=== PATIENT | female | born 2000 | race American Indian/Alaskan Native ===

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

== ENCOUNTER 2018-06-16 02:26 | Emergency (ER) | payer SELFPAY ==
[2018-06-16] MEDS ORDERED: TYLENOL ONE (03:08)
[2018-06-16] MEDS ORDERED: TYLENOL PO ONE (03:31)
[2018-06-16 05:15] LABS: Bacteria,Urine 4+ /HPF (Negative); Bilirubin,Urine NEG (Negative); Blood,Urine SM (Negative); Color,Urine Amber (Yellow); HCG Qualitative,Urine Negative (Negative); Mucus,Urine 2+ /HPF
[2018-06-16 08:11] VITALS: BP 100/64
[2018-06-16] MEDS ORDERED: ROCEPHIN IM ONE (09:08)
[2018-06-16] MEDS ORDERED: XYLOCAINE 1% MPF 5 mL INFILTRATI ONE (09:08)
--- NOTE | 2018-06-16 09:13 | Emergency Department Report ---
ED Female HPI - General Chief complaint: Back Pain/Injury Stated complaint: POSS KIDNEY INFECTION FEVER DIZZY NAUSEA Time Seen by Provider: 06/16/18 09:03 Source: patient Mode of arrival: Ambulatory Limitations: No Limitations - History of Present Illness Initial comments: Patient is 17 years old female with no significant past medical history except for UTI. Patient presented to the ER complaining of fever, dysuria and cloudy urine. Patient is also complaining of right flank pain. Patient stated that her symptoms been going on for 3 days. Patient stated this is similar to her symptoms when she had UTI. Patient stated that she is nauseated but no vomiting. MD Complaint: dysuria, pelvic pain - Related Data Home Medications Medication Instructions Recorded Confirmed Last Taken Montelukast [Singulair] 25 mg PO QDAY 07/02/16 12/28/17 07/02/16 10:00 Previous Rx's Medication Instructions Recorded Last Taken Type Docusate Sodium [Colace] 100 mg PO BID PRN #60 capsule 07/02/16 Unknown Rx Ferrous Sulfate [Feosol 325 MG tab] 325 mg PO BID #60 tablet 07/02/16 1 Day Ago Rx ~10/29/17 Ibuprofen [Motrin 600 MG tab] 600 mg PO Q6HR PRN #30 tablet 07/02/16 Unknown Rx ALBUTEROL Inhaler (OR & NICU) 2 puff IH QID PRN #1 inhalation 08/03/17 1 Week Ago Rx [ProAir HFA Inhaler] ~10/23/17 2 PUFFS predniSONE [Deltasone] 40 mg PO QDAY #5 tab 08/03/17 Unknown Rx Nitrofurantoin Monohyd/M-Cryst 100 mg PO QDAY #60 capsule 11/02/17 Unknown Rx [Macrobid 100 mg Capsule] Promethazine [Phenergan TAB] 25 mg PO Q6HR PRN #30 tab 11/02/17 1 Month Ago Rx ~11/30/17 cephALEXin [Keflex] 500 mg PO Q12HR #20 cap 11/02/17 1 Month Ago Rx ~11/30/17 oxyCODONE /ACETAMINOPHEN [Percocet 1 tab PO Q6HR PRN #30 tablet 11/02/17 Unknown Rx 5/325] ALBUTEROL Inhaler (OR & NICU) 2 puff IH QID PRN #1 device 11/25/17 Unknown Rx [ProAir HFA Inhaler] Prednisone [predniSONE 10 mg 10 mg PO .TAPER #1 tab.ds.pk 11/25/17 Unknown Rx (6-Day Pack, 21 Tabs)] Ferrous Sulfate [Feosol 325 MG tab] 325 mg PO BID #60 tablet 12/29/17 Unknown Rx HYDROcodone/APAP 5-325 [[place] 1 each PO Q6HR PRN #20 tablet 12/29/17 Unknown Rx 5/325] Ibuprofen [Motrin] 800 mg PO Q8HR PRN #30 tablet 12/29/17 Unknown Rx Allergies Allergy/AdvReac Type Severity Reaction Status Date / Time No Known Allergies Allergy Unverified 06/05/16 10:36 ED Review of Systems ROS: Stated complaint: POSS KIDNEY INFECTION FEVER DIZZY NAUSEA Other details as noted in HPI Comment: All other systems reviewed and negative Constitutional: chills, fever Cardiovascular: denies: chest pain, palpitations Gastrointestinal: nausea. denies: abdominal pain, vomiting, diarrhea, constipation, hematemesis, hematochezia Genitourinary: urgency, dysuria, frequency. denies: hematuria, discharge Musculoskeletal: back pain ED Past Medical Hx - Past Medical History Previous Medical History?: Yes Hx Hypertension: No Hx Congestive Heart Failure: No Hx Diabetes: No Hx Deep Vein Thrombosis: No Hx Renal Disease: No Hx Sickle Cell Disease: No Hx Seizures: No Hx Asthma: Yes Hx COPD: No Hx HIV: No Additional medical history: 26 weeks now - Surgical History Past Surgical History?: No - Social History Smoking Status: Never Smoker Substance Use Type: None - Medications Home Medications: Home Medications Medication Instructions Recorded Confirmed Last Taken Type Docusate Sodium [Colace] 100 mg PO BID PRN #60 capsule 07/02/16 12/28/17 Unknown Rx Ferrous Sulfate [Feosol 325 MG tab] 325 mg PO BID #60 tablet 07/02/16 12/28/17 1 Day Ago Rx ~10/29/17 Ibuprofen [Motrin 600 MG tab] 600 mg PO Q6HR PRN #30 tablet 07/02/16 12/28/17 Unknown Rx Montelukast [Singulair] 25 mg PO QDAY 07/02/16 12/28/17 07/02/16 10:00 History ALBUTEROL Inhaler (OR & NICU) 2 puff IH QID PRN #1 inhalation 08/03/17 12/28/17 1 Week Ago Rx [ProAir HFA Inhaler] ~10/23/17 2 PUFFS predniSONE [Deltasone] 40 mg PO QDAY #5 tab 08/03/17 12/28/17 Unknown Rx Nitrofurantoin Monohyd/M-Cryst 100 mg PO QDAY #60 capsule 11/02/17 12/28/17 Unknown Rx [Macrobid 100 mg Capsule] Promethazine [Phenergan TAB] 25 mg PO Q6HR PRN #30 tab 11/02/17 12/28/17 1 Month Ago Rx ~11/30/17 cephALEXin [Keflex] 500 mg PO Q12HR #20 cap 11/02/17 12/28/17 1 Month Ago Rx ~11/30/17 oxyCODONE /ACETAMINOPHEN [Percocet 1 tab PO Q6HR PRN #30 tablet 11/02/17 Unknown Rx 5/325] ALBUTEROL Inhaler (OR & NICU) 2 puff IH QID PRN #1 device 11/25/17 12/28/17 Unknown Rx [ProAir HFA Inhaler] Prednisone [predniSONE 10 mg 10 mg PO .TAPER #1 tab.ds.pk 11/25/17 12/28/17 Unknown Rx (6-Day Pack, 21 Tabs)] Ferrous Sulfate [Feosol 325 MG tab] 325 mg PO BID #60 tablet 12/29/17 Unknown Rx HYDROcodone/APAP 5-325 [[place] 1 each PO Q6HR PRN #20 tablet 12/29/17 Unknown Rx 5/325] Ibuprofen [Motrin] 800 mg PO Q8HR PRN #30 tablet 12/29/17 Unknown Rx ED Physical Exam - General Limitations: No Limitations General appearance: alert, in no apparent distress - Head Head exam: Present: atraumatic, normocephalic, normal inspection - Eye Eye exam: Present: normal appearance - ENT ENT exam: Present: normal exam, normal orophraynx, mucous membranes moist - Neck Neck exam: Present: normal inspection, full ROM. Absent: tenderness, meningismus, lymphadenopathy, thyromegaly - Respiratory Respiratory exam: Present: normal lung sounds bilaterally. Absent: respiratory distress, wheezes, rales, rhonchi, stridor, chest wall tenderness, accessory muscle use, decreased breath sounds, prolonged expiratory - Cardiovascular Cardiovascular Exam: Present: regular rate, normal rhythm, normal heart sounds - GI/Abdominal GI/Abdominal exam: Present: soft, normal bowel sounds. Absent: distended, tenderness, guarding, rebound, rigid, organomegaly, mass, bruit, pulsatile mass , hernia - Extremities Exam Extremities exam: Present: normal inspection, full ROM, normal capillary refill. Absent: pedal edema, calf tenderness - Back Exam Back exam: Present: normal inspection, full ROM, CVA tenderness (R). Absent: tenderness, CVA tenderness (L), muscle spasm, paraspinal tenderness, vertebral tenderness - Neurological Exam Neurological exam: Present: alert, oriented X3, CN II-XII intact, normal gait, reflexes normal - Skin Skin exam: Present: warm, intact, normal color ED Course Vital Signs 06/16/18 06/16/18 03:24 08:07 Temperature 103.1 F H 99.0 F Pulse Rate 118 H 105 H Respiratory 20 16 Rate Blood Pressure 118/75 100/64 O2 Sat by Pulse 97 100 Oximetry Critical care attestation.: If time is entered above; I have spent that time in minutes in the direct care of this critically ill patient, excluding procedure time. ED Disposition Clinical Impression: UTI (urinary tract infection), Fever Disposition: - TO HOME OR SELFCARE Is pt being admited?: No Condition: Stable Instructions: Urinary Tract Infection in Women (ED), Acute Pyelonephritis (ED) Referrals: PRIMARY CARE, [Primary Care Provider] - 3-5 Days
[2018-06-16] MEDS ORDERED: XYLOCAINE 1% 20 mL ONE (09:25)
== END 2018-06-16 09:36 | disposition home or self-care (01) ==
LOC: ED 02:26
DX: N39.0 Urinary tract infection, site not specified (principal); J45.909 Unspecified asthma, uncomplicated
CPT/HCPCS: 81001; 81025; 96372; 99283; J0696

== ENCOUNTER 2018-11-08 13:45 | Emergency (ER) | payer SELFPAY ==
[2018-11-08 14:35] VITALS: BP 132/91
[2018-11-08] MEDS ORDERED: DUONEB *Not for PRN Use IH ONE (14:37)
[2018-11-08] MEDS ORDERED: SOLU-Medrol IM ONE (14:37)
--- NOTE | 2018-11-08 14:37 | Emergency Department Report ---
Blank Doc - Documentation Documentation: cc of asthma exacerbation started today LMP; not prod cough x today EXAM: wheezing Bilat PLAN: cxr, solumedrol duoneb breathing tx Reevaluate fastrack
[2018-11-08] MEDS ORDERED: CLARITIN PO ONE (14:38)
[2018-11-08] MEDS ORDERED: ROBITUSSIN PO ONE (14:39)
--- NOTE | 2018-11-08 15:56 | Emergency Department Report ---
ED General Adult HPI - General Chief complaint: Adult Asthma Stated complaint: ASTHMA Time Seen by Provider: 11/08/18 15:39 Source: patient Mode of arrival: Ambulatory Limitations: No Limitations - History of Present Illness Initial comments: Patient presents to the emergency department with chief complaint of asthma attack. Patient states that the change in weather usually flares up her asthma. Patient has been using her rescue inhaler home but is out of her Singulair. -: Sudden Severity scale (0 -10): 2 Quality: burning Improves with: none Worsens with: none Associated Symptoms: denies other symptoms Treatments Prior to Arrival: none - Related Data Home Medications Medication Instructions Recorded Confirmed Last Taken Montelukast [Singulair] 25 mg PO QDAY 07/02/16 12/28/17 07/02/16 10:00 Previous Rx's Medication Instructions Recorded Last Taken Type Docusate Sodium [Colace] 100 mg PO BID PRN #60 capsule 07/02/16 Unknown Rx Ferrous Sulfate [Feosol 325 MG tab] 325 mg PO BID #60 tablet 07/02/16 1 Day Ago Rx ~10/29/17 Ibuprofen [Motrin 600 MG tab] 600 mg PO Q6HR PRN #30 tablet 07/02/16 Unknown Rx ALBUTEROL Inhaler (OR & NICU) 2 puff IH QID PRN #1 inhalation 08/03/17 1 Week Ago Rx [ProAir HFA Inhaler] ~10/23/17 2 PUFFS predniSONE [Deltasone] 40 mg PO QDAY #5 tab 08/03/17 Unknown Rx Nitrofurantoin Monohyd/M-Cryst 100 mg PO QDAY #60 capsule 11/02/17 Unknown Rx [Macrobid 100 mg Capsule] Promethazine [Phenergan TAB] 25 mg PO Q6HR PRN #30 tab 11/02/17 1 Month Ago Rx ~11/30/17 cephALEXin [Keflex] 500 mg PO Q12HR #20 cap 11/02/17 1 Month Ago Rx ~11/30/17 oxyCODONE /ACETAMINOPHEN [Percocet 1 tab PO Q6HR PRN #30 tablet 11/02/17 Unknown Rx 5/325] ALBUTEROL Inhaler (OR & NICU) 2 puff IH QID PRN #1 device 11/25/17 Unknown Rx [ProAir HFA Inhaler] Prednisone [predniSONE 10 mg 10 mg PO .TAPER #1 tab.ds.pk 11/25/17 Unknown Rx (6-Day Pack, 21 Tabs)] Ferrous Sulfate [Feosol 325 MG tab] 325 mg PO BID #60 tablet 12/29/17 Unknown Rx HYDROcodone/APAP 5-325 [[place] 1 each PO Q6HR PRN #20 tablet 12/29/17 Unknown Rx 5/325] Ibuprofen [Motrin] 800 mg PO Q8HR PRN #30 tablet 12/29/17 Unknown Rx Ciprofloxacin HCl [Ciprofloxacin 500 mg PO Q12H #14 tab 06/16/18 Unknown Rx TAB] Ondansetron [Zofran Odt] 4 mg PO Q8HR PRN #14 tab.rapdis 06/16/18 Unknown Rx ALBUTEROL Inhaler (OR & NICU) 2 puff IH Q4HR PRN #1 inhalation 11/08/18 Unknown Rx [ProAir HFA Inhaler] Montelukast [Singulair] 10 mg PO QPM #30 tablet 11/08/18 Unknown Rx predniSONE [Deltasone] 20 mg PO DAILY #15 tablet 11/08/18 Unknown Rx Allergies Allergy/AdvReac Type Severity Reaction Status Date / Time No Known Allergies Allergy Verified 11/08/18 14:33 ED Review of Systems ROS: Stated complaint: ASTHMA Other details as noted in HPI Comment: All other systems reviewed and negative Constitutional: denies: chills, fever Eyes: denies: eye pain, eye discharge, vision change ENT: denies: ear pain, throat pain Respiratory: shortness of breath. denies: cough, wheezing Cardiovascular: denies: chest pain, palpitations Endocrine: no symptoms reported Gastrointestinal: denies: abdominal pain, nausea, diarrhea Genitourinary: denies: urgency, dysuria, discharge Musculoskeletal: denies: back pain, joint swelling, arthralgia Skin: denies: rash, lesions Neurological: denies: headache, weakness, paresthesias Psychiatric: denies: anxiety, depression Hematological/Lymphatic: denies: easy bleeding, easy bruising ED Past Medical Hx - Past Medical History Previous Medical History?: Yes Hx Hypertension: No Hx Congestive Heart Failure: No Hx Diabetes: No Hx Deep Vein Thrombosis: No Hx Renal Disease: No Hx Sickle Cell Disease: No Hx Seizures: No Hx Asthma: Yes Hx COPD: No Hx HIV: No Additional medical history: 26 weeks now - Surgical History Past Surgical History?: No - Social History Smoking Status: Never Smoker Substance Use Type: None - Medications Home Medications: Home Medications Medication Instructions Recorded Confirmed Last Taken Type Docusate Sodium [Colace] 100 mg PO BID PRN #60 capsule 07/02/16 12/28/17 Unknown Rx Ferrous Sulfate [Feosol 325 MG tab] 325 mg PO BID #60 tablet 07/02/16 12/28/17 1 Day Ago Rx ~10/29/17 Ibuprofen [Motrin 600 MG tab] 600 mg PO Q6HR PRN #30 tablet 07/02/16 12/28/17 Unknown Rx Montelukast [Singulair] 25 mg PO QDAY 07/02/16 12/28/17 07/02/16 10:00 History ALBUTEROL Inhaler (OR & NICU) 2 puff IH QID PRN #1 inhalation 08/03/17 12/28/17 1 Week Ago Rx [ProAir HFA Inhaler] ~10/23/17 2 PUFFS predniSONE [Deltasone] 40 mg PO QDAY #5 tab 08/03/17 12/28/17 Unknown Rx Nitrofurantoin Monohyd/M-Cryst 100 mg PO QDAY #60 capsule 11/02/17 12/28/17 Unknown Rx [Macrobid 100 mg Capsule] Promethazine [Phenergan TAB] 25 mg PO Q6HR PRN #30 tab 11/02/17 12/28/17 1 Month Ago Rx ~11/30/17 cephALEXin [Keflex] 500 mg PO Q12HR #20 cap 11/02/17 12/28/17 1 Month Ago Rx ~11/30/17 oxyCODONE /ACETAMINOPHEN [Percocet 1 tab PO Q6HR PRN #30 tablet 11/02/17 12/28/17 Unknown Rx 5/325] ALBUTEROL Inhaler (OR & NICU) 2 puff IH QID PRN #1 device 11/25/17 12/28/17 Unknown Rx [ProAir HFA Inhaler] Prednisone [predniSONE 10 mg 10 mg PO .TAPER #1 tab.ds.pk 11/25/17 12/28/17 Unknown Rx (6-Day Pack, 21 Tabs)] Ferrous Sulfate [Feosol 325 MG tab] 325 mg PO BID #60 tablet 12/29/17 Unknown Rx HYDROcodone/APAP 5-325 [[place] 1 each PO Q6HR PRN #20 tablet 12/29/17 Unknown Rx 5/325] Ibuprofen [Motrin] 800 mg PO Q8HR PRN #30 tablet 12/29/17 Unknown Rx Ciprofloxacin HCl [Ciprofloxacin 500 mg PO Q12H #14 tab 06/16/18 Unknown Rx TAB] Ondansetron [Zofran Odt] 4 mg PO Q8HR PRN #14 tab.rapdis 06/16/18 Unknown Rx ALBUTEROL Inhaler (OR & NICU) 2 puff IH Q4HR PRN #1 inhalation 11/08/18 Unknown Rx [ProAir HFA Inhaler] Montelukast [Singulair] 10 mg PO QPM #30 tablet 11/08/18 Unknown Rx predniSONE [Deltasone] 20 mg PO DAILY #15 tablet 11/08/18 Unknown Rx ED Physical Exam - General Limitations: No Limitations General appearance: alert, in no apparent distress - Head Head exam: Present: atraumatic, normocephalic - Eye Eye exam: Present: normal appearance, PERRL, EOMI - ENT ENT exam: Present: mucous membranes moist - Neck Neck exam: Present: normal inspection - Respiratory Respiratory exam: Present: normal lung sounds bilaterally, wheezes. Absent: respiratory distress - Cardiovascular Cardiovascular Exam: Present: regular rate, normal rhythm. Absent: systolic murmur, diastolic murmur, rubs, gallop - GI/Abdominal GI/Abdominal exam: Present: soft, normal bowel sounds. Absent: distended, tenderness - Extremities Exam Extremities exam: Present: normal inspection - Back Exam Back exam: Present: normal inspection - Neurological Exam Neurological exam: Present: alert, oriented X3, CN II-XII intact. Absent: motor sensory deficit - Psychiatric Psychiatric exam: Present: normal affect, normal mood - Skin Skin exam: Present: warm, dry, intact, normal color. Absent: rash ED Course Vital Signs 11/08/18 11/08/18 14:33 15:08 Temperature 98.6 F Pulse Rate 93 H Pulse Rate [ 85 Bilateral] Respiratory 22 Rate Respiratory 20 Rate [Bilateral ] Blood Pressure 132/91 O2 Sat by Pulse 91 Oximetry ED Medical Decision Making - Medical Decision Making Patient improved with the breathing treatment and steroids Critical care attestation.: If time is entered above; I have spent that time in minutes in the direct care of this critically ill patient, excluding procedure time. ED Disposition Clinical Impression: Asthma Disposition: [id number]-01 TO HOME OR SELFCARE Is pt being admited?: No Does the pt Need Aspirin: No Condition: Stable Instructions: Asthma (ED) Additional Instructions: return if worse Prescriptions: Montelukast [Singulair] 10 mg PO QPM #30 tablet Referrals: [facility] [Provider Group] - 3-5 Days [facility] [Provider Group] - 3-5 Days SARAI RAYO MD [Primary Care Provider] - 3-5 Days Time of Disposition: 16:16
== END 2018-11-08 16:36 | disposition home or self-care (01) ==
LOC: ED 13:45
DX: O26.892 Other specified pregnancy related conditions, second trimester (principal); O99.512 Diseases of the respiratory system complicating pregnancy, second trimester; Z3A.26 26 weeks gestation of pregnancy; Z79.899 Other long term (current) drug therapy
CPT/HCPCS: 94640; 96372; 99282; J2930

== ENCOUNTER 2018-12-13 15:48 | Emergency (ER) | payer OTHER ==
[2018-12-13 16:21] VITALS: BP 120/92
[2018-12-13] MEDS ORDERED: BICILLIN L-A IM STA (16:32)
[2018-12-13] MEDS ORDERED: DECADRON PO ONE (16:35)
--- NOTE | 2018-12-13 16:41 | Emergency Department Report ---
ED ENT HPI - General Chief complaint: Sore Throat Stated complaint: DIFFICULTY SWOLLOWING Time Seen by Provider: 12/13/18 16:31 Source: patient Mode of arrival: Ambulatory Limitations: No Limitations - History of Present Illness MD complaint: sore throat, difficulty swallowing -: Sudden, days(s) (2) Location: throat Severity: moderate Quality: constant Improves with: none Worsens with: none Associated Symptoms: sore throat. denies: cough, gum swelling, toothache, pain with swallowing, tinnitus, hearing loss, discharge from ear, rhinorrhea - Related Data Home Medications Medication Instructions Recorded Confirmed Last Taken Montelukast [Singulair] 25 mg PO QDAY 07/02/16 12/28/17 07/02/16 10:00 Previous Rx's Medication Instructions Recorded Last Taken Type Docusate Sodium [Colace] 100 mg PO BID PRN #60 capsule 07/02/16 Unknown Rx Ferrous Sulfate [Feosol 325 MG tab] 325 mg PO BID #60 tablet 07/02/16 1 Day Ago Rx ~10/29/17 Ibuprofen [Motrin 600 MG tab] 600 mg PO Q6HR PRN #30 tablet 07/02/16 Unknown Rx ALBUTEROL Inhaler (OR & NICU) 2 puff IH QID PRN #1 inhalation 08/03/17 1 Week Ago Rx [ProAir HFA Inhaler] ~10/23/17 2 PUFFS predniSONE [Deltasone] 40 mg PO QDAY #5 tab 08/03/17 Unknown Rx Nitrofurantoin Monohyd/M-Cryst 100 mg PO QDAY #60 capsule 11/02/17 Unknown Rx [Macrobid 100 mg Capsule] Promethazine [Phenergan TAB] 25 mg PO Q6HR PRN #30 tab 11/02/17 1 Month Ago Rx ~11/30/17 cephALEXin [Keflex] 500 mg PO Q12HR #20 cap 11/02/17 1 Month Ago Rx ~11/30/17 oxyCODONE /ACETAMINOPHEN [Percocet 1 tab PO Q6HR PRN #30 tablet 11/02/17 Unknown Rx 5/325] ALBUTEROL Inhaler (OR & NICU) 2 puff IH QID PRN #1 device 11/25/17 Unknown Rx [ProAir HFA Inhaler] Prednisone [predniSONE 10 mg 10 mg PO .TAPER #1 tab.ds.pk 11/25/17 Unknown Rx (6-Day Pack, 21 Tabs)] Ferrous Sulfate [Feosol 325 MG tab] 325 mg PO BID #60 tablet 12/29/17 Unknown Rx HYDROcodone/APAP 5-325 [[place] 1 each PO Q6HR PRN #20 tablet 12/29/17 Unknown Rx 5/325] Ibuprofen [Motrin] 800 mg PO Q8HR PRN #30 tablet 12/29/17 Unknown Rx Ciprofloxacin HCl [Ciprofloxacin 500 mg PO Q12H #14 tab 06/16/18 Unknown Rx TAB] Ondansetron [Zofran Odt] 4 mg PO Q8HR PRN #14 tab.rapdis 06/16/18 Unknown Rx ALBUTEROL Inhaler (OR & NICU) 2 puff IH Q4HR PRN #1 inhalation 11/08/18 Unknown Rx [ProAir HFA Inhaler] Montelukast [Singulair] 10 mg PO QPM #30 tablet 11/08/18 Unknown Rx predniSONE [Deltasone] 20 mg PO DAILY #15 tablet 11/08/18 Unknown Rx Chlorhexidine Mouthwash [Peridex] 15 ml MM BID #473 bottle 12/13/18 Unknown Rx Lidocaine Viscous 2% 5 ml MM Q3H PRN #120 udc 12/13/18 Unknown Rx Allergies Allergy/AdvReac Type Severity Reaction Status Date / Time No Known Allergies Allergy Verified 12/13/18 15:55 ED Dental HPI - General Chief complaint: Sore Throat Stated complaint: DIFFICULTY SWOLLOWING Time Seen by Provider: 12/13/18 16:31 Source: patient Mode of arrival: Ambulatory Limitations: No Limitations - Related Data Home Medications Medication Instructions Recorded Confirmed Last Taken Montelukast [Singulair] 25 mg PO QDAY 07/02/16 12/28/17 07/02/16 10:00 Previous Rx's Medication Instructions Recorded Last Taken Type Docusate Sodium [Colace] 100 mg PO BID PRN #60 capsule 07/02/16 Unknown Rx Ferrous Sulfate [Feosol 325 MG tab] 325 mg PO BID #60 tablet 07/02/16 1 Day Ago Rx ~10/29/17 Ibuprofen [Motrin 600 MG tab] 600 mg PO Q6HR PRN #30 tablet 07/02/16 Unknown Rx ALBUTEROL Inhaler (OR & NICU) 2 puff IH QID PRN #1 inhalation 08/03/17 1 Week Ago Rx [ProAir HFA Inhaler] ~10/23/17 2 PUFFS predniSONE [Deltasone] 40 mg PO QDAY #5 tab 08/03/17 Unknown Rx Nitrofurantoin Monohyd/M-Cryst 100 mg PO QDAY #60 capsule 11/02/17 Unknown Rx [Macrobid 100 mg Capsule] Promethazine [Phenergan TAB] 25 mg PO Q6HR PRN #30 tab 11/02/17 1 Month Ago Rx ~11/30/17 cephALEXin [Keflex] 500 mg PO Q12HR #20 cap 11/02/17 1 Month Ago Rx ~11/30/17 oxyCODONE /ACETAMINOPHEN [Percocet 1 tab PO Q6HR PRN #30 tablet 11/02/17 Unknown Rx 5/325] ALBUTEROL Inhaler (OR & NICU) 2 puff IH QID PRN #1 device 11/25/17 Unknown Rx [ProAir HFA Inhaler] Prednisone [predniSONE 10 mg 10 mg PO .TAPER #1 tab.ds.pk 11/25/17 Unknown Rx (6-Day Pack, 21 Tabs)] Ferrous Sulfate [Feosol 325 MG tab] 325 mg PO BID #60 tablet 12/29/17 Unknown Rx HYDROcodone/APAP 5-325 [[place] 1 each PO Q6HR PRN #20 tablet 12/29/17 Unknown Rx 5/325] Ibuprofen [Motrin] 800 mg PO Q8HR PRN #30 tablet 12/29/17 Unknown Rx Ciprofloxacin HCl [Ciprofloxacin 500 mg PO Q12H #14 tab 06/16/18 Unknown Rx TAB] Ondansetron [Zofran Odt] 4 mg PO Q8HR PRN #14 tab.rapdis 06/16/18 Unknown Rx ALBUTEROL Inhaler (OR & NICU) 2 puff IH Q4HR PRN #1 inhalation 11/08/18 Unknown Rx [ProAir HFA Inhaler] Montelukast [Singulair] 10 mg PO QPM #30 tablet 11/08/18 Unknown Rx predniSONE [Deltasone] 20 mg PO DAILY #15 tablet 11/08/18 Unknown Rx Chlorhexidine Mouthwash [Peridex] 15 ml MM BID #473 bottle 12/13/18 Unknown Rx Lidocaine Viscous 2% 5 ml MM Q3H PRN #120 udc 12/13/18 Unknown Rx Allergies Allergy/AdvReac Type Severity Reaction Status Date / Time No Known Allergies Allergy Verified 12/13/18 15:55 ED Review of Systems ROS: Stated complaint: DIFFICULTY SWOLLOWING Other details as noted in HPI Constitutional: denies: chills, fever Eyes: denies: eye pain, eye discharge, vision change ENT: throat pain. denies: ear pain Respiratory: denies: cough, shortness of breath, wheezing Cardiovascular: denies: chest pain, palpitations Endocrine: no symptoms reported Gastrointestinal: denies: abdominal pain, nausea, diarrhea Genitourinary: denies: urgency, dysuria, discharge Musculoskeletal: denies: back pain, joint swelling, arthralgia Skin: denies: rash, lesions Neurological: denies: headache, weakness, paresthesias Psychiatric: denies: anxiety, depression Hematological/Lymphatic: denies: easy bleeding, easy bruising ED Past Medical Hx - Past Medical History Hx Hypertension: No Hx Congestive Heart Failure: No Hx Diabetes: No Hx Deep Vein Thrombosis: No Hx Renal Disease: No Hx Sickle Cell Disease: No Hx Seizures: No Hx Asthma: Yes Hx COPD: No Hx HIV: No Additional medical history: 26 weeks now - Social History Smoking Status: Never Smoker - Medications Home Medications: Home Medications Medication Instructions Recorded Confirmed Last Taken Type Docusate Sodium [Colace] 100 mg PO BID PRN #60 capsule 07/02/16 12/28/17 Unknown Rx Ferrous Sulfate [Feosol 325 MG tab] 325 mg PO BID #60 tablet 07/02/16 12/28/17 1 Day Ago Rx ~10/29/17 Ibuprofen [Motrin 600 MG tab] 600 mg PO Q6HR PRN #30 tablet 07/02/16 12/28/17 Unknown Rx Montelukast [Singulair] 25 mg PO QDAY 07/02/16 12/28/17 07/02/16 10:00 History ALBUTEROL Inhaler (OR & NICU) 2 puff IH QID PRN #1 inhalation 08/03/17 12/28/17 1 Week Ago Rx [ProAir HFA Inhaler] ~10/23/17 2 PUFFS predniSONE [Deltasone] 40 mg PO QDAY #5 tab 08/03/17 12/28/17 Unknown Rx Nitrofurantoin Monohyd/M-Cryst 100 mg PO QDAY #60 capsule 11/02/17 12/28/17 Unknown Rx [Macrobid 100 mg Capsule] Promethazine [Phenergan TAB] 25 mg PO Q6HR PRN #30 tab 11/02/17 12/28/17 1 Month Ago Rx ~11/30/17 cephALEXin [Keflex] 500 mg PO Q12HR #20 cap 11/02/17 12/28/17 1 Month Ago Rx ~11/30/17 oxyCODONE /ACETAMINOPHEN [Percocet 1 tab PO Q6HR PRN #30 tablet 11/02/17 12/28/17 Unknown Rx 5/325] ALBUTEROL Inhaler (OR & NICU) 2 puff IH QID PRN #1 device 11/25/17 12/28/17 Unknown Rx [ProAir HFA Inhaler] Prednisone [predniSONE 10 mg 10 mg PO .TAPER #1 tab.ds.pk 11/25/17 12/28/17 Unknown Rx (6-Day Pack, 21 Tabs)] Ferrous Sulfate [Feosol 325 MG tab] 325 mg PO BID #60 tablet 12/29/17 Unknown Rx HYDROcodone/APAP 5-325 [[place] 1 each PO Q6HR PRN #20 tablet 12/29/17 Unknown Rx 5/325] Ibuprofen [Motrin] 800 mg PO Q8HR PRN #30 tablet 12/29/17 Unknown Rx Ciprofloxacin HCl [Ciprofloxacin 500 mg PO Q12H #14 tab 06/16/18 Unknown Rx TAB] Ondansetron [Zofran Odt] 4 mg PO Q8HR PRN #14 tab.rapdis 06/16/18 Unknown Rx ALBUTEROL Inhaler (OR & NICU) 2 puff IH Q4HR PRN #1 inhalation 11/08/18 Unknown Rx [ProAir HFA Inhaler] Montelukast [Singulair] 10 mg PO QPM #30 tablet 11/08/18 Unknown Rx predniSONE [Deltasone] 20 mg PO DAILY #15 tablet 11/08/18 Unknown Rx Chlorhexidine Mouthwash [Peridex] 15 ml MM BID #473 bottle 12/13/18 Unknown Rx Lidocaine Viscous 2% 5 ml MM Q3H PRN #120 udc 12/13/18 Unknown Rx ED Physical Exam - General Limitations: No Limitations General appearance: alert, in no apparent distress - Head Head exam: Present: atraumatic, normocephalic - Eye Eye exam: Present: normal appearance, PERRL, EOMI - ENT ENT exam: Present: mucous membranes moist, TM's normal bilaterally, other (pharynx red with exudate) - Neck Neck exam: Present: normal inspection, full ROM - Respiratory Respiratory exam: Present: normal lung sounds bilaterally. Absent: respiratory distress, wheezes, rales, rhonchi, chest wall tenderness, accessory muscle use, decreased breath sounds - Cardiovascular Cardiovascular Exam: Present: regular rate, normal rhythm. Absent: systolic murmur, diastolic murmur, rubs, gallop - GI/Abdominal GI/Abdominal exam: Present: soft, normal bowel sounds. Absent: tenderness, guarding, hyperactive bowel sounds, hypoactive bowel sounds, organomegaly - Extremities Exam Extremities exam: Present: normal inspection - Back Exam Back exam: Present: normal inspection - Neurological Exam Neurological exam: Present: alert, oriented X3, CN II-XII intact - Psychiatric Psychiatric exam: Present: normal affect, normal mood - Skin Skin exam: Present: warm, dry, intact, normal color. Absent: rash ED Course Vital Signs 12/13/18 16:19 Temperature 98.0 F Pulse Rate 96 H Respiratory 14 Rate Blood Pressure 120/92 [Right] O2 Sat by Pulse 100 Oximetry Critical care attestation.: If time is entered above; I have spent that time in minutes in the direct care of this critically ill patient, excluding procedure time. ED Disposition Clinical Impression: Exudative pharyngitis Disposition: DC-01 TO HOME OR SELFCARE Is pt being admited?: No Does the pt Need Aspirin: No Condition: Stable Instructions: Pharyngitis (ED) Prescriptions: Lidocaine Viscous 2% 5 ml MM Q3H PRN #120 udc PRN Reason: Pain, Moderate (4-6) Chlorhexidine Mouthwash [Peridex] 15 ml MM BID #473 bottle Referrals: MACK CHAVEZ MD [Emergency Provider] - 3-5 Days
== END 2018-12-13 17:24 | disposition home or self-care (01) ==
LOC: ED 15:48
DX: O99.512 Diseases of the respiratory system complicating pregnancy, second trimester (principal); J02.9 Acute pharyngitis, unspecified; J45.909 Unspecified asthma, uncomplicated; Z3A.26 26 weeks gestation of pregnancy
CPT/HCPCS: 96372; 99282; J0561; J1100

== ENCOUNTER 2019-08-09 06:55 | Emergency (ER) | payer OTHER ==
[2019-08-09 08:14] LABS: Bacteria,Urine 2+ /HPF (Negative); Bilirubin,Urine NEG (Negative); Blood,Urine LG (Negative); Color,Urine Yellow (Yellow); Mucus,Urine 1+ /HPF; Protein,Urine <15 mg/dL mg/dL (Negative); Urobilinogen,Urine < 2.0 mg/dL (<2.0)
[2019-08-09 08:25] LABS: BUN/Creatinine Ratio 23; Blood Urea Nitrogen 16 mg/dL (7-17); Calcium 8.8 mg/dL (8.4-10.2); Hemolysis Index 10
[2019-08-09 08:26] LABS: Hematocrit 41.4 % (30.3-42.9); Hemoglobin 14.2 gm/dl (10.1-14.3); Mean Corpuscular HGB Conc 34 % (30-34); Mean Corpuscular Volume 88 fl (79-97); Platelet Count 289 K/mm3 (140-440); Red Blood Count 4.71 M/mm3 (3.65-5.03); Red Cell Distribution Width 14.6 % (13.2-15.2)
--- NOTE | 2019-08-09 08:43 | Emergency Department Report ---
ED Female HPI - General Chief complaint: Vaginal Bleeding Stated complaint: VAGINAL BLEEDING Time Seen by Provider: 08/09/19 07:36 Source: patient Mode of arrival: Ambulatory Limitations: No Limitations - History of Present Illness Initial comments: This is a 18-year-old female nontoxic, well nourished in appearance, no acute signs of distress presents to the ED with c/o of vaginal bleeding x3 weeks. Patient stated she has an Mel. Stated goes about 1 pad every 2-3 hours but stated bleeding is decreasing. Patient denies following up with a DOCTOR'S ASSISTANT. Patient denies any abdominal or pelvic pain. Patient denies any vaginal discharge or foul odor. Patient denies any nausea, vomiting, chest pain, shortness of breathe, fever, chills, headache, stiff neck, numbness, tingling. Patient denies any urinary symptoms. Patient denies any allergies or PMH. MD Complaint: vaginal bleeding -: week(s) (3) Severity scale (0 -10): 0 Improves with: none Worsens with: none Are you Now?: No Associated Symptoms: vaginal bleeding. denies: vaginal discharge, abdominal jillian n, nausea/vomiting, fever/chills, headaches, loss of appetite, dysuria, hematuria, rash, seizure, shortness of breath, syncope, weakness - Related Data Home Medications Medication Instructions Recorded Confirmed Last Taken Montelukast [Singulair] 25 mg PO QDAY 07/02/16 12/28/17 07/02/16 10:00 Previous Rx's Medication Instructions Recorded Last Taken Type Docusate Sodium [Colace] 100 mg PO BID PRN #60 capsule 07/02/16 Unknown Rx Ferrous Sulfate [Feosol 325 MG tab] 325 mg PO BID #60 tablet 07/02/16 1 Day Ago Rx ~10/29/17 Ibuprofen [Motrin 600 MG tab] 600 mg PO Q6HR PRN #30 tablet 07/02/16 Unknown Rx ALBUTEROL Inhaler (OR & NICU) 2 puff IH QID PRN #1 inhalation 08/03/17 1 Week Ago Rx [ProAir HFA Inhaler] ~10/23/17 2 PUFFS predniSONE [Deltasone] 40 mg PO QDAY #5 tab 08/03/17 Unknown Rx Nitrofurantoin Monohyd/M-Cryst 100 mg PO QDAY #60 capsule 11/02/17 Unknown Rx [Macrobid 100 mg Capsule] Promethazine [Phenergan TAB] 25 mg PO Q6HR PRN #30 tab 11/02/17 1 Month Ago Rx ~11/30/17 cephALEXin [Keflex] 500 mg PO Q12HR #20 cap 11/02/17 1 Month Ago Rx ~11/30/17 oxyCODONE /ACETAMINOPHEN [Percocet 1 tab PO Q6HR PRN #30 tablet 11/02/17 Unknown Rx 5/325] ALBUTEROL Inhaler (OR & NICU) 2 puff IH QID PRN #1 device 11/25/17 Unknown Rx [ProAir HFA Inhaler] Prednisone [predniSONE 10 mg 10 mg PO .TAPER #1 tab.ds.pk 11/25/17 Unknown Rx (6-Day Pack, 21 Tabs)] Ferrous Sulfate [Feosol 325 MG tab] 325 mg PO BID #60 tablet 12/29/17 Unknown Rx HYDROcodone/APAP 5-325 [[place] 1 each PO Q6HR PRN #20 tablet 12/29/17 Unknown Rx 5/325] Ibuprofen [Motrin] 800 mg PO Q8HR PRN #30 tablet 12/29/17 Unknown Rx Ciprofloxacin HCl [Ciprofloxacin 500 mg PO Q12H #14 tab 06/16/18 Unknown Rx TAB] Ondansetron [Zofran Odt] 4 mg PO Q8HR PRN #14 tab.rapdis 06/16/18 Unknown Rx ALBUTEROL Inhaler (OR & NICU) 2 puff IH Q4HR PRN #1 inhalation 11/08/18 Unknown Rx [ProAir HFA Inhaler] Montelukast [Singulair] 10 mg PO QPM #30 tablet 11/08/18 Unknown Rx predniSONE [Deltasone] 20 mg PO DAILY #15 tablet 11/08/18 Unknown Rx Chlorhexidine Mouthwash [Peridex] 15 ml MM BID #473 bottle 12/13/18 Unknown Rx Lidocaine Viscous 2% 5 ml MM Q3H PRN #120 udc 12/13/18 Unknown Rx Allergies Allergy/AdvReac Type Severity Reaction Status Date / Time No Known Allergies Allergy Verified 12/13/18 15:55 ED Review of Systems ROS: Stated complaint: VAGINAL BLEEDING Other details as noted in HPI Constitutional: denies: chills, fever Eyes: denies: eye pain, eye discharge, vision change ENT: denies: ear pain, throat pain Respiratory: denies: cough, shortness of breath, wheezing Cardiovascular: denies: chest pain, palpitations Endocrine: no symptoms reported Gastrointestinal: denies: abdominal pain, nausea, diarrhea Genitourinary: abnormal menses. denies: urgency, dysuria, discharge Musculoskeletal: denies: back pain, joint swelling, arthralgia Skin: denies: rash, lesions Neurological: denies: headache, weakness, paresthesias Psychiatric: denies: anxiety, depression Hematological/Lymphatic: denies: easy bleeding, easy bruising ED Past Medical Hx - Past Medical History Previous Medical History?: Yes Hx Hypertension: No Hx Congestive Heart Failure: No Hx Diabetes: No Hx Deep Vein Thrombosis: No Hx Renal Disease: No Hx Sickle Cell Disease: No Hx Seizures: No Hx Asthma: Yes Hx COPD: No Hx HIV: No Additional medical history: 26 weeks now - Surgical History Past Surgical History?: No - Social History Smoking Status: Never Smoker - Medications Home Medications: Home Medications Medication Instructions Recorded Confirmed Last Taken Type Docusate Sodium [Colace] 100 mg PO BID PRN #60 capsule 07/02/16 12/28/17 Unknown Rx Ferrous Sulfate [Feosol 325 MG tab] 325 mg PO BID #60 tablet 07/02/16 12/28/17 1 Day Ago Rx ~10/29/17 Ibuprofen [Motrin 600 MG tab] 600 mg PO Q6HR PRN #30 tablet 07/02/16 12/28/17 Unknown Rx Montelukast [Singulair] 25 mg PO QDAY 07/02/16 12/28/17 07/02/16 10:00 History ALBUTEROL Inhaler (OR & NICU) 2 puff IH QID PRN #1 inhalation 08/03/17 12/28/17 1 Week Ago Rx [ProAir HFA Inhaler] ~10/23/17 2 PUFFS predniSONE [Deltasone] 40 mg PO QDAY #5 tab 08/03/17 12/28/17 Unknown Rx Nitrofurantoin Monohyd/M-Cryst 100 mg PO QDAY #60 capsule 11/02/17 12/28/17 Unknown Rx [Macrobid 100 mg Capsule] Promethazine [Phenergan TAB] 25 mg PO Q6HR PRN #30 tab 11/02/17 12/28/17 1 Month Ago Rx ~11/30/17 cephALEXin [Keflex] 500 mg PO Q12HR #20 cap 11/02/17 12/28/17 1 Month Ago Rx ~11/30/17 oxyCODONE /ACETAMINOPHEN [Percocet 1 tab PO Q6HR PRN #30 tablet 11/02/17 12/28/17 Unknown Rx 5/325] ALBUTEROL Inhaler (OR & NICU) 2 puff IH QID PRN #1 device 11/25/17 12/28/17 Unknown Rx [ProAir HFA Inhaler] Prednisone [predniSONE 10 mg 10 mg PO .TAPER #1 tab.ds.pk 11/25/17 12/28/17 Unknown Rx (6-Day Pack, 21 Tabs)] Ferrous Sulfate [Feosol 325 MG tab] 325 mg PO BID #60 tablet 12/29/17 Unknown Rx HYDROcodone/APAP 5-325 [[place] 1 each PO Q6HR PRN #20 tablet 12/29/17 Unknown Rx 5/325] Ibuprofen [Motrin] 800 mg PO Q8HR PRN #30 tablet 12/29/17 Unknown Rx Ciprofloxacin HCl [Ciprofloxacin 500 mg PO Q12H #14 tab 06/16/18 Unknown Rx TAB] Ondansetron [Zofran Odt] 4 mg PO Q8HR PRN #14 tab.rapdis 06/16/18 Unknown Rx ALBUTEROL Inhaler (OR & NICU) 2 puff IH Q4HR PRN #1 inhalation 11/08/18 Unknown Rx [ProAir HFA Inhaler] Montelukast [Singulair] 10 mg PO QPM #30 tablet 11/08/18 Unknown Rx predniSONE [Deltasone] 20 mg PO DAILY #15 tablet 11/08/18 Unknown Rx Chlorhexidine Mouthwash [Peridex] 15 ml MM BID #473 bottle 12/13/18 Unknown Rx Lidocaine Viscous 2% 5 ml MM Q3H PRN #120 udc 12/13/18 Unknown Rx ED Physical Exam - General Limitations: No Limitations General appearance: alert, in no apparent distress - Head Head exam: Present: atraumatic, normocephalic - Neck Neck exam: Present: normal inspection, full ROM - Respiratory Respiratory exam: Present: normal lung sounds bilaterally. Absent: respiratory distress, wheezes, rales, rhonchi, stridor, chest wall tenderness, accessory muscle use, decreased breath sounds, prolonged expiratory - Cardiovascular Cardiovascular Exam: Present: regular rate, normal rhythm, normal heart sounds. Absent: bradycardia, tachycardia, irregular rhythm, systolic murmur, diastolic murmur, rubs, gallop - GI/Abdominal GI/Abdominal exam: Present: soft, normal bowel sounds. Absent: distended, tenderness, guarding, rebound, rigid, diminished bowel sounds - External exam: Present: normal external exam, other (refinery operator light ends recovery Gail RN present during exam). Absent: erythema, swelling, lesions, lacerations, ecchymosis, bleeding Speculum exam: Present: vaginal bleeding (very small amount), other (refinery operator light ends recovery Gail RN present during exam). Absent: erythema, vaginal discharge, cervical discharge, foreign body, tissue, laceration Bi-manual exam: Present: other (refinery operator light ends recovery Gail RN present during exam). Absent: cervical motion tendernes, adnexal tenderness, adnexal mass, uterine enlargement, uterine tenderness - Extremities Exam Extremities exam: Present: normal inspection, full ROM - Back Exam Back exam: Present: normal inspection, full ROM. Absent: tenderness, CVA t enderness (R), CVA tenderness (L), muscle spasm, paraspinal tenderness, vertebral tenderness, rash noted - Neurological Exam Neurological exam: Present: alert, oriented X3, normal gait - Psychiatric Psychiatric exam: Present: normal affect, normal mood - Skin Skin exam: Present: warm, dry, intact, normal color. Absent: rash ED Course Vital Signs 08/09/19 08/09/19 07:18 09:02 Temperature 98.0 F Pulse Rate 74 65 Respiratory 18 16 Rate Blood Pressure 99/66 Blood Pressure 99/65 [Left] O2 Sat by Pulse 96 97 Oximetry - Reevaluation(s) Reevaluation #1: 08/09/19 08:45 Patient is speaking in full sentences with no signs of distress noted. ED Medical Decision Making - Lab Data Result diagrams: 08/09/19 07:47 08/09/19 07:47 - Medical Decision Making This is a 18-year-old female presents with abnormal menstrual cycle. Patient is stable and was examined by me. Normal abdominal exam. Labs within normal limits. Patient has been consulted with Lucina Lazar about patient history, physical exam, and labs and no US need at this time and patient to follow-up. Ua obtained. Quantative serum test obtained and negative for . Patient was instructed to Follow-up with a OBGYN doctor in 3-5 days or if symptoms worsen and continue return to emergency room as soon as possible. No acute signs of distress noted. Patient agrees to discharge treatment plan of care. No further questions noted by the patient. Critical care attestation.: If time is entered above; I have spent that time in minutes in the direct care of this critically ill patient, excluding procedure time. ED Disposition Clinical Impression: Abnormal menstrual cycle Disposition: DC- TO HOME OR SELFCARE Is pt being admited?: No Does the pt Need Aspirin: No Condition: Stable Additional Instructions: Follow-up with a OBGYN doctor in 3-5 days or if symptoms worsen and continue return to emergency room as soon as possible. Referrals: PRIMARY CARE, [Primary Care Provider] - 3-5 Days NAVNEET PERSAUD MD [Staff Physician] - 3-5 Days [facility] [Provider Group] - 3-5 Days Forms: Work/School Release Form(ED)
[2019-08-09 09:03] VITALS: BP 99/65
[2019-08-09 09:45] LABS: Band Neutrophils # (Manual) 0.1 K/mm3; Basophils % (Manual) 0 % (0.0-1.8); Total Cells Counted 100
[2019-08-09 09:48] LABS: Platelet Estimate Consistent w Auto
== END 2019-08-09 09:19 | disposition home or self-care (01) ==
LOC: ED 06:55
DX: N92.6 Irregular menstruation, unspecified (principal); J45.909 Unspecified asthma, uncomplicated; Z79.899 Other long term (current) drug therapy
CPT/HCPCS: 36415; 80048; 81001; 84702; 85007; 85025